=== PATIENT | female | born 1930 | race Caucasian/White ===

== ENCOUNTER → 2018-06-18 | Outpatient (CLI) | payer MEDICARE, OTHER ==
--- NOTE | 2018-06-18 14:38 | RADIOLOGY REPORT (SQ) ---
EXAM DESCRIPTION: NM WHOLE BODY BONE SCAN COMPLETED DATE/TIME: 06/18/2018 1:51 pm REASON FOR STUDY: WEDGE COMPRESSION FX PF T11-T12 S22.080S WEDGE COMPRESSION FRACTURE OF T11-T12 VE RTEBRA, SEQ COMPARISON: Plain films 05/31/2018 RADIONUCLIDE AND DOSE: 21.1 millicuries Tc99m MDP. The route of agent administration: Intravenous. ADDITIONAL DRUGS AND DOSES: None. TECHNIQUE: Routine delayed images at 3 hours post radionuclide injection acquired of the bony skelet on including anterior and posterior whole-body projections and additional focused images as needed. LIMITATIONS: None. FINDINGS: BONES: Bandlike increased uptake is seen at T12 worrisome for acute or subacute compressio n deformity. Outside plain films demonstrate 50% compression of T12. No other areas of increased uptake over the thoracic or lumbar spine. Outside Plain films demonstrated 50% L1 compression which is likely chronic as there is no increased uptake on today's bone scan in this level. Mild increased uptake at both shoulders likely due to osteoarthritis. Bilateral knee replacements ar e present without increased surrounding uptake. Mild increased uptake at the bilateral mid feet. KIDNEYS: Symmetric excretion without obstruction. OTHER: No other significant finding. IMPRESSION: Bone scan demonstrates increased uptake at T12 which correlates with a 50% compression d eformity on outside plain films. COMMENT: Quality measure 147: Current bone scan is compared with any available plain radiographs, p rior bone scans, and CT/MRI. TECHNICAL DOCUMENTATION: JOB ID: [id number] [employer]- All Rights Reserved Reading location - IP/workstation name: [email or web address]
== END ==
LOC: RAD 11:10
PROVIDERS: ATTEND Orthopaedic Surgery Sports Medicine
DX: S22.080S Wedge compression fracture of T11-T12 vertebra, sequela (principal); X58.XXXS Exposure to other specified factors, sequela; Z96.653 Presence of artificial knee joint, bilateral
CPT/HCPCS: 78306; A9561; Q9969